=== PATIENT | female | born 1975 | race Two or more races ===

== ENCOUNTER 2017-06-26 12:31 | Emergency (ER) | payer OTHER ==
[~2017-06-26] VITALS: Ht 165.1 cm; Wt 74.8 kg
[~2017-06-26 12:31] MED LIST: AZITHROMYCIN500 MG PO; CONEX TABLET1 EACH PO; DOLOGEN CAPLET1 EACH PO; PEPCID20 MG PO; TUSICOF LIQUID120 ML PO
[2017-06-26] MEDS ORDERED: ZYRTEC10 M3 (13:21)
== END 2017-06-26 22:28 | disposition home or self-care (01) ==
LOC: ER 12:31
DX: J10.1 Influenza due to other identified influenza virus with other respiratory manifestations (principal); R50.9 Fever, unspecified

== ENCOUNTER 2020-04-22 10:37 | Emergency (ER) | payer OTHER ==
[~2020-04-22] VITALS: Ht 165.1 cm; Wt 83.9 kg
[~2020-04-22 10:37] MED LIST changes: +ZYRTEC10 M3
[2020-04-22] MEDS ORDERED: LOSARTAN POTASS25 MG PO (15:33)
== END 2020-04-22 16:26 | disposition home or self-care (01) ==
LOC: ER 10:37
DX: R51.9 Headache, unspecified (principal); R03.0 Elevated blood-pressure reading, without diagnosis of hypertension; Z11.52 Encounter for screening for COVID-19

== ENCOUNTER 2023-08-16 09:04 | Outpatient (CLI) | payer OTHER ==
[~2023-08-16 09:04] MED LIST changes: +LOSARTAN POTASS25 MG PO
== END 2023-08-16 09:12 | disposition home or self-care (01) ==
LOC: RAD 09:04
PROVIDERS: ATTEND Orthopaedic Surgery
DX: M79.604 Pain in right leg (principal)

== ENCOUNTER → 2024-01-08 | Emergency (ER) | payer OTHER ==
[~2024-01-08] VITALS: Ht 165.1 cm; Wt 78.5 kg
[~2024-01-08] MED LIST changes: +ACETAMINOPHEN 500 MG GEL..CAP PO ONE; +AMLODIPINE-OLM1 EACH PO; +DEXAMETHASONE SODIUM PHOSPHATE 4 MG/ML VIAL IM ONE; +MOUNJARO5 MG/0.5 M SUBCUTANEO; +SYNJARDY XR 101 EACH PO
[2024-01-08 10:32] LABS: HEMATOCRIT 35.6 % (36.0-45.00); HEMOGLOBIN 11.7 g/dL (12.0-15.00); MEAN CORPUSCULAR HEMOGLOBIN 22.1 pg (27.00-32.0); MEAN CORPUSCULAR HGB CONC 32.8 g/dl (32.0-36.0); PLATELET COUNT 292 K/uL (150-450); RED BLOOD COUNT 5.27 M/uL (4.00-6.00)
[2024-01-08 10:33] LABS: MEAN CELL VOLUME 67.5 fL (80.00-100.00); RED CELL DISTRIBUTION WIDTH 21.1 % (11.5-14.5)
== END | disposition home or self-care (01) ==
LOC: ER 08:43
PROVIDERS: General Practice
DX: B34.9 Viral infection, unspecified (principal); I10 Essential (primary) hypertension; E11.9 Type 2 diabetes mellitus without complications; Z79.84 Long term (current) use of oral hypoglycemic drugs; Z20.822 Contact with and (suspected) exposure to COVID-19